=== PATIENT | female | born 1935 | race Caucasian/White ===

== ENCOUNTER 2018-12-20 08:30 | Outpatient (CLI) | payer OTHER | END 2018-12-20 08:33 | disposition home or self-care (01) | LOC: TOM 08:30 | DX: K63.5 Polyp of colon (principal); Z80.0 Family history of malignant neoplasm of digestive organs; K56.600 Partial intestinal obstruction, unspecified as to cause; R19.5 Other fecal abnormalities ==

== ENCOUNTER 2020-01-14 20:02 | Emergency (ER) | payer OTHER ==
[~2020-01-14] VITALS: Ht 154.9 cm; Wt 70.3 kg
[2020-01-15] MEDS ORDERED: NASAL MIST126 ML NASAL (07:56)
[2020-01-15] MEDS ORDERED: PROTONIX40 MG PO (07:56)
[2020-01-15] MEDS ORDERED: PEPCID40 MG PO (07:56)
[2020-01-15] MEDS ORDERED: ZOFRAN8 MG PO (07:56)
== END 2020-01-15 08:14 | disposition home or self-care (01) ==
LOC: ER 20:02
DX: K21.00 Gastro-esophageal reflux disease with esophagitis, without bleeding (principal); Z03.818 Encounter for observation for suspected exposure to other biological agents ruled out; I10 Essential (primary) hypertension

== ENCOUNTER 2020-01-26 11:48 | Emergency (ER) | payer OTHER ==
[~2020-01-26] VITALS: Ht 154.9 cm; Wt 70.3 kg
[~2020-01-26 11:48] MED LIST: NASAL MIST126 ML NASAL; PEPCID40 MG PO; PROTONIX40 MG PO; ZOFRAN8 MG PO
[2020-01-26] MEDS ORDERED: SYNTHROID50 MCG PO (12:09)
[2020-01-26] MEDS ORDERED: FORTAMET500 MG PO (12:09)
[2020-01-26] MEDS ORDERED: PANTOPRAZOLE SO40 MG PO (12:10)
[2020-01-26] MEDS ORDERED: BUSPIRONE HCL7.5 MG PO (12:10)
[2020-01-26] MEDS ORDERED: PEPCID AC20 MG PO (12:10)
[2020-01-26] MEDS ORDERED: TOPROL XL25 M1 PO (12:11)
[2020-01-26] MEDS ORDERED: NORVASC10 MG PO (12:11)
[2020-01-26] MEDS ORDERED: ARICEPT10 MG PO (12:11)
[2020-01-26] MEDS ORDERED: SIMVASTATIN20 MG PO (12:12)
[2020-01-26] MEDS ORDERED: SYMBICORT 16010.2 GM (12:12)
[2020-01-26] MEDS ORDERED: TUSSIN DM SYRU118 ML PO (14:44)
[2020-01-26] MEDS ORDERED: TESSALON PERLE100 M1 PO (14:44)
== END 2020-01-26 14:52 | disposition home or self-care (01) ==
LOC: ER 11:48
DX: R06.02 Shortness of breath (principal); R05 Cough; Z03.818 Encounter for observation for suspected exposure to other biological agents ruled out

== ENCOUNTER 2020-03-28 10:24 | Emergency (ER) | payer OTHER ==
[~2020-03-28] VITALS: Ht 154.9 cm; Wt 68.0 kg
[~2020-03-28 10:24] MED LIST changes: +ARICEPT10 MG PO; +BUSPIRONE HCL7.5 MG PO; +FORTAMET500 MG PO; +NORVASC10 MG PO; +PANTOPRAZOLE SO40 MG PO; +PEPCID AC20 MG PO; +SIMVASTATIN20 MG PO; +SYMBICORT 16010.2 GM; +SYNTHROID50 MCG PO; +TESSALON PERLE100 M1 PO; +TOPROL XL25 M1 PO; +TUSSIN DM SYRU118 ML PO
[2020-03-28] MEDS ORDERED: PROMETH-CODEIN 65 ML (10:46)
[2020-03-28] MEDS ORDERED: PROAIR HFA8.5 GM (10:46)
== END 2020-03-28 13:50 | disposition home or self-care (01) ==
LOC: ER 10:24
DX: J45.998 Other asthma (principal)

== ENCOUNTER 2020-07-25 08:37 | Outpatient (CLI) | payer OTHER ==
[~2020-07-25 08:37] MED LIST changes: +PROAIR HFA8.5 GM; +PROMETH-CODEIN 65 ML
== END 2020-07-25 08:55 | disposition home or self-care (01) ==
LOC: RX STUDY 08:37
PROVIDERS: ATTEND Internal Medicine Gastroenterology
DX: R10.11 Right upper quadrant pain (principal); K21.9 Gastro-esophageal reflux disease without esophagitis

== ENCOUNTER 2020-12-12 07:38 | Outpatient (CLI) | payer OTHER | END 2020-12-12 07:44 | disposition home or self-care (01) | LOC: RX STUDY 07:38 | PROVIDERS: ATTEND Internal Medicine Gastroenterology | DX: K44.9 Diaphragmatic hernia without obstruction or gangrene (principal); R10.13 Epigastric pain ==

== ENCOUNTER 2022-08-21 08:17 | Outpatient (CLI) | payer OTHER | END 2022-08-21 08:26 | disposition home or self-care (01) | LOC: TOM 08:17 | DX: Z12.11 Encounter for screening for malignant neoplasm of colon (principal); Z80.0 Family history of malignant neoplasm of digestive organs ==

== ENCOUNTER 2023-12-27 07:35 | Outpatient (CLI) | payer OTHER | END 2023-12-27 07:40 | disposition home or self-care (01) | LOC: NUCLEAR 07:35 | PROVIDERS: ATTEND Internal Medicine Cardiovascular Disease | DX: I20.89 Other forms of angina pectoris (principal) | CPT/HCPCS: 78452; 93017; A9500 ==